=== PATIENT | female | born 1985 | race American Indian/Alaskan Native ===

== ENCOUNTER → 2016-08-07 07:04 | Emergency (ER) | payer MEDICAID ==
[~2016-08-07 07:04] MED LIST: Sodium Chloride 0.9% 1,000 ML ONE
== END | disposition left against medical advice (07) ==
LOC: C.ER 07:04
DX: Z04.8 Encounter for examination and observation for other specified reasons (principal); Z02.9 Encounter for administrative examinations, unspecified